=== PATIENT | female | born 1970 | race Two or more races ===

== ENCOUNTER 2022-02-28 17:46 | Emergency (ER) | payer OTHER ==
[~2022-02-28] VITALS: Ht 170.2 cm; Wt 97.5 kg
[2022-02-28] MEDS ORDERED: ASA81 MG PO (18:34)
[2022-02-28] MEDS ORDERED: DICLOFENAC POTA25 M1 PO (18:35)
[2022-02-28] MEDS ORDERED: PERCOCET 5-3251 EACH PO (18:36)
== END 2022-02-28 19:41 | disposition home or self-care (01) ==
LOC: ER 17:46
DX: M12.571 Traumatic arthropathy, right ankle and foot (principal); T14.90XS Injury, unspecified, sequela; V48 Car occupant injured in noncollision transport accident